=== PATIENT | male | born 1955 | race Caucasian/White ===

== ENCOUNTER 2016-11-15 16:49 | Inpatient (IN) | payer MEDICARE, OTHER ==
--- NOTE | ~2016-11-15 | DS ---
Discharge Summary [address] [address] [place]. [address] NAME: SHANTELLE GOLDEN : 55 STATUS : DIS IN PAT#: [id number] AGE: 61 ADM/REG DATE : 11/15/16 MR#: [id number] REPORT SERV DATE: 11/25/16 DICTATED BY: MARSHALL CAM DATE: 11/24/16 REPORT STATUS : Draft TRANSCRIBED BY: MODJesus DATE: 11/24/16 ADMISSION DATE: 11/15/2016 DISCHARGE DATE: 11/24/2016 CONSULTATION: 1. Cardiology, Dr. Darnell Blanchard. 2. Gastroenterology, Dr. Espinoza. 3. Orthopedic surgeon, Dr. Sebastian Moreland. 4. Awning Assembler, Dr. Brent Christianson. PROCEDURES DURING THIS ADMISSION: 1. Colonoscopy. Impression:. a. Non-thrombosed external hemorrhoids found on perianal exam. b. A single solitary ulcer in the ascending colon, biopsied. c. Diverticulosis in the sigmoid colon. d. Internal hemorrhoids. e. Recommendations: Recent hematochezia is secondary to hemorrhoids. Recommend repeat colonoscopy in 10 years. 2. Upper GI endoscopy. Impression:. a. Grade 2 esophageal varices. b. Portal hypertension gastropathy. c. Normal examination of duodenum. d. Recommendation: Continue carvedilol. Repeat EGD in six months. DISCHARGE DIAGNOSES: 1. Hepatic encephalopathy. 2. Bacteremia. 3. Lower GI bleed secondary to internal hemorrhoids. 4. Epidural hematoma. 5. Acute kidney injury. 6. Hypertension. 7. Coronary artery disease, status post CABG. 8. End-stage liver disease. 9. Liver cirrhosis. 10.History of hepatitis C infection. 11.Acute blood loss anemia requiring blood transfusion. DISCHARGE CONDITION: Stable. HISTORY OF PRESENT ILLNESS: For detailed HPI, please make reference to Dr. Cam's dictation on 11/16/2016. For hospital course between 11/16/2016 to 11/23/2016, please make reference to the interim discharge summary by Dr. Wesley Wilson. HOSPITAL COURSE: In summary, this is a 61-year-old gentleman with medical history significant for end-stage liver disease, history of hepatitis C, alcohol abuse, coronary artery disease, status post CABG in 2011, who presented with worsening confusion concerning Discharge Summary [facility] [address] [place]. [address] NAME: SHANTELLE GOLDEN : 55 STATUS : DIS IN PAT#: [id number] AGE: 61 ADM/REG DATE : 11/15/16 MR#: [id number] REPORT SERV DATE: 11/25/16 DICTATED BY: MARSHALL CAM DATE: 11/24/16 REPORT STATUS : Draft TRANSCRIBED BY: SARAH BETH DATE: 11/24/16 for hepatic encephalopathy. The patient was admitted to the Hospitalist Service. 1. Hepatic encephalopathy. The patient's ammonia was elevated. The patient was started on lactulose and rifaximin. The patient's confusion progressively improved during the course of this admission. 2. Bacteremia. The patient was also noted to have two blood cultures that were positive for staph agalactiae. The patient was placed on broad-spectrum antibiotics with vancomycin and ceftriaxone. Based on the sensitivity, this was gradually de-escalated. At the time of discharge, the patient was switched to p.o. levofloxacin based on sensitivity. Echocardiogram shows no evidence of vegetations. The patient has remained afebrile prior to discharge. Also, the patient's WBC gradually trended down nicely. 3. Acute blood loss anemia. The patient reported some episodes of chest pain. Given the patient's extensive cardiac history, it was noted that the patient was started on IV heparin; however, the patient's anemia continued to trip down. He continued to have persistent hematochezia, hence heparin was discontinued. Gastroenterology was consulted, who performed an EGD and a colonoscopy during the course of this admission. Report of the EGD and colonoscopy are as noted above. Source of hematochezia was noted to be related to hemorrhoids. The patient receive blood transfusion as well as platelet transfusion for thrombocytopenia. The patient's hemoglobin was noted to become stable prior to discharge. The patient's hemoglobin was 8.5. Also, of note, the patient complained of back pain, had an MRI of the thoracic and lumbar spine that shows T6 fracture with a large hematoma concerning for a retroperitoneal bleed. Orthopedic surgeon was consulted. Orthopedics recommend nonsurgical intervention given the patient's overall prognosis. It was recommended to continue to monitor patient's H and H. Prior to discharge, the patient's H and H remained stable at 8.5, and was advised to follow up with primary care physician as an outpatient. 4. Physical deconditioning. Prior to discharge, physical therapy evaluated the patient. Recommended the patient to undergo acute rehab; however, the patient declined acute rehab despite extensive counseling. We made an extensive attempt to get help for the patient for alcohol cessation program, but the patient has declined help. We also had a family meeting to plan for a safe discharge. The patient's ex-, who has the power of city attorney, was at the bedside. Prior to discharge, the patient's ex- reports that she will be able to provide care for the patient at home and will also ensure the patient's continued followup with primary care physician, with Cardiology, and orthopedic surgeon as an outpatient. At the time of discharge, the patient has remained stable. All questions were answered. All questions and concerns of the patient and ex- were addressed. The patient's mental status was alert and oriented x3 and had full competence into decision making at the time of discharge. DISCHARGE MEDICATION: 1. Rifaximin 550 mg p.o. b.i.d. 2. Lactulose 20 mg/30 mL 50 mg b.i.d. 3. Spironolactone 25 mg p.o. b.i.d. 4. Lasix 40 mg p.o. b.i.d. 5. Coreg 6.25 mg p.o. b.i.d. 6. Protonix 40 mg p.o. daily. 7. Levofloxacin 750 mg p.o. daily. Discharge Summary [address] [address] NAME: SHANTELLE GOLDEN : 55 STATUS : DIS IN PAT#: [id number] AGE: 61 ADM/REG DATE : 11/15/16 MR#: [id number] REPORT SERV DATE: 11/25/16 DICTATED BY: MARSHALL CAM DATE: 11/24/16 REPORT STATUS : Draft TRANSCRIBED BY: SARAH BETH DATE: 11/24/16 FOLLOW UP: To follow up with primary care physician within one to two weeks of discharge. To follow up with orthopedic surgeon within one to two weeks of discharge. To also follow up with his primary tinning equipment tender as an outpatient. The patient's hospital ward clerk and GI specialist is Dr. Molina. The patient to continue followup with him within two to three weeks of discharge. DISCHARGE ACTIVITIES: As tolerated. DISCHARGE DISPOSITION: Discharged home per the patient's wishes. Greater than 35 minutes was used to prepare this patient's discharge, reconcile medication, and advise the patient on discharge plans and followup. IOO/MODL Marshall Cam MD / [id number] CC: MD Hussain Palacios M.D.
--- NOTE | ~2016-11-15 | CN ---
Consultation Report [facility] [address] [place]. [address] NAME: SHANTELLE GOLDEN : 55 STATUS : ADM IN PAT#: [id number] AGE: 61 ADM/REG DATE : 11/15/16 MR#: [id number] REPORT SERV DATE: 11/24/16 DICTATED BY: SEBASTIAN BROWNING DATE: 11/24/16 REPORT STATUS : Draft TRANSCRIBED BY: MODL DATE: 11/24/16 CONSULT DATE OF CONSULTATION: CHIEF COMPLAINT: Upper back pain. HISTORY OF PRESENT ILLNESS: This is a 61-year-old male, who was admitted to the hospital for confusion and had GI bleed. Has end-stage liver cirrhosis, hepatitis C, alcohol abuse, etc. The patient has some coagulopathy and had a GI bleed. He has been able to resolve many of the medical issues. He has been placed on a DNR status listed on the chart. The patient has abnormal bleeding parameters per the labs. He was complaining of some back pain and has been walking with a walker in the hallway. He has had pain in the back, some pains in the legs, no weakness in the legs, has not had any alteration in bowel or bladder function and overall has been using a walker for at least the last 3 weeks. The patient was found on a chest x-ray to have a possible T6 compression fracture. MRI was obtained yesterday, the MRI showed a T6 fracture, there is minimal retropulsion but no impingement. There was a secondary finding of a small right-sided epidural hematoma causing some indentation of the thecal sac but it was nondisplacing or causing compression on the cord itself. There were some similar findings at T12. There was findings that extended down into the lumbar spine, and because of the abnormal hematoma in the lumbar spine, a separate MRI of the lumbar spine was obtained. The MRI of the lumbar spine does show much greater epidural hematoma, significant thecal sac compromise, and some rather high-grade stenosis. Despite the imaging findings the patient does not have subjective complaints of neurologic deficits such as change in bowel or bladder function, weakness in lower extremities, or major numbness. The chart has been reviewed in its entirety. Please see that for details on the history and physical regarding past medical history, surgical history, current medications, allergies, social history, and family history. PHYSICAL EXAMINATION: GENERAL: On exam, he was alert and cooperative, followed directions. He was turning in bed appropriately. He was able to follow all directions. MUSCULOSKELETAL: He had some pain with percussion over the midthoracic spine and the spinous processes. No significant spasms. He had no significant pain to palpation or percussion over the lumbar spine. NEUROLOGIC: He had a negative straight leg raising, passive and active. Interestingly, his motor strength of the iliopsoas, adductor, abductors, quadriceps, hamstrings, tibialis anterior, and gastroc soleus were all 5/5. Both patellar and Achilles reflexes were absent, but the toes were downgoing. There was no ankle clonus, and there was no evidence of myelopathy by exam. There was no dermatomal sensory deficit in either lower extremity that I could map out. ORTHOPEDIC: He did not have any joint deformities. He had no pain with moving the hips, knees, or ankles. Consultation Report [facility] [facility] [id number] [facility] [place]. [address] NAME: SHANTELLE GOLDEN : 55 STATUS : ADM IN [facility]#: [id number] AGE: 61 ADM/REG DATE : 11/15/16 MR#: [id number] REPORT SERV DATE: 11/24/16 DICTATED BY: SEBASTIAN BROWNING DATE: 11/24/16 REPORT STATUS : Draft TRANSCRIBED BY: SARAH BETH DATE: 11/24/16 IMAGING: MRIs of the thoracic and lumbar spine have been reviewed with the findings as noted above. ASSESSMENT: 1. T6 subacute compression fracture that is stable, no kyphoplasty or surgery needed. 2. Small epidural hematoma at C6 and T12, stable, no cord compression and no surgery needed. 3. High-grade lumbar epidural hematoma, but no neurologic deficit in the lower extremities, and with his current coagulopathy, liver failure, and DNR status, I do not believe he is a surgical candidate. We are treating the patient rather than treating just images, and with an intact neurologic status, I do not see the need for a multilevel laminectomy and evacuation of hematoma. Please note, I have gone over with the patient the findings of the MRI. I have explained to him if his leg start to feel weak in any way or if he has any alteration in bowel or bladder function, he should return to the ER immediately. At this time, the hospitalist can disposition as desired. Over the next 2 to 3 months, I think the hematoma should slowly resolve. KOKI/IMTIAZL Sebastian Browning D.O. / [id number] CC: MD Hussain Macias M.D.
--- NOTE | ~2016-11-15 | EGD ---
EGD REPORT [facility] [address] [place] [address] NAME: DYLAN ANTHONY : 55 STATUS : ADM IN PAT#: [id number] AGE: 61 ADM/REG DATE : 11/15/16 MR#: [id number] REPORT SERV DATE: 11/20/16 DICTATED BY: JEET STEVENS DATE: 11/20/16 REPORT STATUS : Draft [facility]ANSCRIBED BY: [facility] DATE: 11/20/16 [facility] Center Patient Name: Dylan Anthony Date of : 1955 Attending MD: JEET STEVENS MD Procedure Date No Time: 11/20/2016 Procedure: Colonoscopy Indications: Hematochezia Referring MD: NADIA SAL Medicines: Propofol per Anesthesia Complications: No immediate complications. Procedure: Pre-Anesthesia Assessment: - ASA Grade Assessment: IV - A patient with severe systemic disease that is a constant threat to life. After I obtained informed consent, the scope was passed under direct vision. Throughout the procedure, the patient's blood pressure, pulse, and oxygen saturations were monitored continuously. The PCF [id number] was introduced through the anus and advanced to the cecum, identified by appendiceal orifice and ileocecal valve. The colonoscopy was performed without difficulty. The patient tolerated the procedure well. The quality of the bowel preparation was good. Findings: The perianal exam was abnormal. Findings include non-thrombosed external hemorrhoids. A single (solitary) six mm ulcer was found in the ascending colon. No bleeding was present. Biopsies were taken with a cold forceps for histology. Multiple small-mouthed diverticula were found in the sigmoid colon. Internal hemorrhoids were found during retroflexion and were Grade II (internal hemorrhoids that prolapse but reduce spontaneously). Impression: - Non-thrombosed external hemorrhoids found on perianal exam. - A single (solitary) ulcer in the ascending colon. Biopsied. - Diverticulosis in the sigmoid colon. - Internal hemorrhoids. Recommendation: - Await pathology results. - Recent hematochezia is secondary to hemorrhoids. Anusol HC as needed. - Patient has a contact number available for EGD REPORT [address] [address] NAME: DYLAN ANTHONY : 55 STATUS : ADM IN PAT#: [id number] AGE: 61 ADM/REG DATE : 11/15/16 MR#: [id number] REPORT SERV DATE: 11/20/16 DICTATED BY: JEET STEVENS DATE: 11/20/16 REPORT STATUS : Draft TRANSCRIBED BY: [employer] DATE: 11/20/16 emergencies. The signs and symptoms of potential delayed complications were discussed with the patient. Return to normal activities tomorrow. Written discharge instructions were provided to the patient. - Regular diet. - Repeat colonoscopy in 10 years for screening purposes. Procedure Code(s): --- Professional --- 15678, Colonoscopy, flexible, proximal to splenic flexure; with biopsy, single or multiple Diagnosis Code(s): --- Professional --- K64.1, Second degree hemorrhoids K64.4, Residual hemorrhoidal skin tags K57.30, Diverticulosis of large intestine without perforation or abscess without bleeding K63.3, Ulcer of intestine K92.1, [place]ena CPT copyright 2013 [employer]. All rights reserved. The codes documented in this report are preliminary and upon open hearth furnace operator review may be revised to meet current compliance requirements. JEET STEVENS MD 11/20/2016 7:54 AM This report has been signed electronically. Number of Addenda: 0 Note Initiated On: 11/20/2016 7:10 AM Scope Withdrawal Time 0 hours 9 minutes 28 seconds [address] [place] [address]
--- NOTE | ~2016-11-15 | CN ---
Consultation Report [facility] [address] [place]. [address] NAME: DYLAN ANTHONY : 55 STATUS : ADM IN PAT#: [id number] AGE: 61 ADM/REG DATE : 11/15/16 MR#: [id number] REPORT SERV DATE: 11/17/16 DICTATED BY: SHAUN ODEN DATE: 11/17/16 REPORT STATUS : Draft TRANSCRIBED BY: MODL DATE: 11/17/16 GI CONSULTATION DATE OF CONSULTATION: 11/17/2016 REASON FOR CONSULTATION: Evaluation and management of bright red blood per rectum. HISTORY OF PRESENT ILLNESS: Mr. Dylan Anthony is a 61-year-old male patient, who is known to Dr. Virgen Kaplan as well as Dr. Mazin Molina for hepatitis C with end-stage liver cirrhosis. The patient presented to [facility] with a chief complaint, on 11/15/2016, of confusion as well as nausea, vomiting, and diarrhea. He states that now he has been having some rectal bleeding for several months. He essentially ignored it thinking that it would just go away but it has progressively worsened. He was admitted on 11/15/2016 with a hemoglobin of 11.6, that has subsequently dropped to 7.9 and is anticipating a blood transfusion at this moment. He has been started on Protonix drip as well as an octreotide drip. He has had a colonoscopy in the past by Dr. Kaplan, which showed colon polyps, diverticulosis of the sigmoid colon, and internal hemorrhoids. He has never had an EGD. He has a history of hepatitis C, which has been cleared. His last hep C RNA was negative. He does have a history of alcoholism and it was reported that he was drinking quarts heavily five days prior to symptom onset. He states that he did have some abdominal pain with the diarrhea. He has had some vomiting but denies any coffee-ground or angel blood from what the nursing staff has said his stools began with dark maroon color but now have progressively turned into bright red blood. He denies any rectal discomfort. He was encephalopathic when he came in and now has resolved. I have discussed with the patient. We will plan for EGD and colonoscopy to be done tomorrow after adequate bowel prep. He is agreeable to proceed. He had a question of a STEMI on admission and was given some heparin, but Cardiology has seen the patient and ruled out STEMI. PAST MEDICAL HISTORY: Positive for alcohol abuse; hepatitis C, cleared on last hep C RNA; liver cirrhosis; coronary artery disease, status post CABG; hyperlipidemia; hypertension; history of hepatic encephalopathy. He has coronary artery disease with a history of CABG. FAMILY HISTORY: Negative from a GI standpoint. SOCIAL HISTORY: . Positive for daily alcohol. Past history of tobacco. Denies illicits. ALLERGIES: TO STATINS AND AMIODARONE. HOME MEDICATIONS: ProAir HFA, BuSpar, folic acid, Zoloft, thiamin, Coreg, Lasix, and spironolactone. REVIEW OF SYSTEMS: A 10-point review of systems obtained. Pertinent positives addressed in the history of Consultation Report [address] [address] NAME: DYLAN ANTHONY : 55 STATUS : ADM IN [facility]#: [id number] AGE: 61 ADM/REG DATE : 11/15/16 MR#: [id number] REPORT SERV DATE: 11/17/16 DICTATED BY: SHAUN ODEN DATE: 11/17/16 REPORT STATUS : Draft TRANSCRIBED BY: SARAH BETH DATE: 11/17/16 present illness. PHYSICAL EXAMINATION: VITAL SIGNS: Temperature is 97.1, pulse of 87, and respirations of 16, blood pressure 98/49. NEUROLOGIC: Reveals an alert, chronically ill-appearing, male, resting in bed. He is oriented x3, but he is very slow to answer. GENERAL: He is cooperative. He is in some mild distress secondary to abdominal discomfort. He is awake, alert, and oriented. He has some mild asterixis noted. HEAD, EARS, EYES, NOSE, AND THROAT: Anicteric. Pupils are equal, round, reactive to light and accommodation. Normocephalic and atraumatic. NECK: No JVD. No palpable nodes. LUNGS: Diminished with normal respiratory effort exhibited. CARDIOVASCULAR SYSTEM: Regular rate and rhythm. ABDOMEN: Soft but obese with mild ascites noted. He has active bowel sounds. No pain elicited on exam. EXTREMITIES: Positive for edema. PERTINENT LABORATORY DATA: Sodium is 134, potassium 3.7, BUN is 43, creatinine is 1.06. White count 11.2, hemoglobin is 7.9, hematocrit 22.2, platelet count is 66. INR of 1.6. CPK is 280, troponin is 0.17, TSH is 2.55. CT on admission without contrast shows cirrhosis and splenomegaly. He also had a brain CT without contrast, which was negative. ASSESSMENT: 1. Bright red blood per rectum with notable dark to maroon. This could be upper versus lower GI bleeding. Differential diagnosis includes esophageal varices, portal hypertensive gastropathy, peptic ulcer disease versus diverticular bleed, AVM. 2. Hepatic encephalopathy, improved. 3. History of hepatitis C. End-stage renal disease, liver disease. 4. Acute blood loss anemia. 5. Alcohol abuse. 6. Bacteremia/sepsis. PLAN: 1. Clear liquid diet. N.p.o. After midnight. 2. Bowel prep today. 3. EGD, colonoscopy in the morning. 4. The patient is already on a PPI and octreotide drip. 5. Follow H and H, transfuse if needed. DG/SARAH BETH [place] Consultation Report [address] [place]. [address] NAME: DYLAN ANTHONY : 55 STATUS : ADM IN [facility]#: [id number] AGE: 61 ADM/REG DATE : 11/15/16 MR#: [id number] REPORT SERV DATE: 11/17/16 DICTATED BY: SHAUN ODEN DATE: 11/17/16 REPORT STATUS : Draft TRANSCRIBED BY: SARAH BETH DATE: 11/17/16 CHAO Espinoza / [id number] CC: MD Hussain Macias M.D.
--- NOTE | ~2016-11-15 | EGD ---
EGD REPORT [facility] [address] [place] [address] NAME: DYLAN ANTHONY : 55 STATUS : ADM IN PAT#: [id number] AGE: 61 ADM/REG DATE : 11/15/16 MR#: [id number] REPORT SERV DATE: 11/20/16 DICTATED BY: JEET STEVENS DATE: 11/20/16 REPORT STATUS : Draft TRANSCRIBED BY: [facility] DATE: 11/20/16 [facility] Patient Name: Dylan Anthony Date of : 1955 Attending MD: JEET STEVENS MD Procedure Date No Time: 11/20/2016 Procedure: Upper GI endoscopy Indications: Cirrhosis rule out esophageal varices Referring MD: NADIA SAL Medicines: Propofol per Anesthesia Complications: No immediate complications. Procedure: Pre-Anesthesia Assessment: - ASA Grade Assessment: IV - A patient with severe systemic disease that is a constant threat to life. After obtaining informed consent, the endoscope was passed under direct vision. Throughout the procedure, the patient's blood pressure, pulse, and oxygen saturations were monitored continuously. The GIF [id number] was introduced through the mouth, and advanced to the second part of duodenum. The upper GI endoscopy was accomplished without difficulty. The patient tolerated the procedure well. Findings: Grade II varices were found in the lower third of the esophagus. Moderate portal hypertensive gastropathy was found in the cardia, in the gastric fundus and in the gastric body. The examined duodenum was normal. Impression: - Grade II esophageal varices. - Portal hypertensive gastropathy. - Normal examined duodenum. Recommendation: - Continue carvedilol. - Repeat EGD in 6 months. Procedure Code(s): --- Professional --- 55221, Esophagogastroduodenoscopy, flexible, transoral; diagnostic, including collection of specimen(s) by brushing or washing, when performed (separate procedure) Diagnosis Code(s): --- Professional --- I85.10, Secondary esophageal varices without bleeding K76.6, Portal hypertension K31.89, Other diseases of stomach and duodenum EGD REPORT [address] [facility] [place] [address] NAME: DYLAN ANTHONY : 55 STATUS : ADM IN PAT#: [id number] AGE: 61 ADM/REG DATE : 11/15/16 MR#: [id number] REPORT SERV DATE: 11/20/16 DICTATED BY: JEET STEVENS. DATE: 11/20/16 REPORT STATUS : Draft TRANSCRIBED BY: [employer] DATE: 11/20/16 K74.60, Unspecified cirrhosis of liver CPT copyright 2013 [employer]. All rights reserved. The codes documented in this report are preliminary and upon braille coder review may be revised to meet current compliance requirements. JEET STEVENS MD 11/20/2016 7:51 AM This report has been signed electronically. Number of Addenda: 0 Note Initiated On: 11/20/2016 7:12 AM Scope Withdrawal Time 0 hours 0 minutes [address] [place] [address]
--- NOTE | ~2016-11-15 | EGD ---
EGD REPORT [facility] [address] [place] [address] NAME: DYLAN ANTHONY : 55 STATUS : DIS IN PAT#: [id number] AGE: 61 ADM/REG DATE : 11/15/16 MR#: [id number] REPORT SERV DATE: 12/21/16 DICTATED BY: JEET STEVENS DATE: 12/21/16 REPORT STATUS : Draft TRANSCRIBED BY: [facility] DATE: 12/21/16 [facility] Patient Name: Dylan Anthony Date of : 1955 Attending MD: JEET STEVENS MD Procedure Date No Time: 11/20/2016 Procedure: Colonoscopy Indications: Hematochezia Referring MD: NADIA SAL Medicines: Propofol per Anesthesia Complications: No immediate complications. Procedure: Pre-Anesthesia Assessment: - ASA Grade Assessment: IV - A patient with severe systemic disease that is a constant threat to life. After I obtained informed consent, the scope was passed under direct vision. Throughout the procedure, the patient's blood pressure, pulse, and oxygen saturations were monitored continuously. The PCF [id number] was introduced through the anus and advanced to the cecum, identified by appendiceal orifice and ileocecal valve. The colonoscopy was performed without difficulty. The patient tolerated the procedure well. The quality of the bowel preparation was good. Findings: The perianal exam was abnormal. Findings include non-thrombosed external hemorrhoids. A single (solitary) six mm ulcer was found in the ascending colon. No bleeding was present. Biopsies were taken with a cold forceps for histology. Multiple small-mouthed diverticula were found in the sigmoid colon. Internal hemorrhoids were found during retroflexion and were Grade II (internal hemorrhoids that prolapse but reduce spontaneously). Impression: - Non-thrombosed external hemorrhoids found on perianal exam. - A single (solitary) ulcer in the ascending colon. Biopsied. - Diverticulosis in the sigmoid colon. - Internal hemorrhoids. Recommendation: - Await pathology results. - Recent hematochezia is secondary to hemorrhoids. Anusol HC as needed. - Patient has a contact number available for EGD REPORT [address] [address] NAME: DYLAN ANTHONY : 55 STATUS : DIS IN PAT#: [id number] AGE: 61 ADM/REG DATE : 11/15/16 MR#: [id number] REPORT SERV DATE: 12/21/16 DICTATED BY: JEET STEVENS DATE: 12/21/16 REPORT STATUS : Draft TRANSCRIBED BY: [facility] DATE: 12/21/16 emergencies. The signs and symptoms of potential delayed complications were discussed with the patient. Return to normal activities tomorrow. Written discharge instructions were provided to the patient. - Regular diet. - Repeat colonoscopy in 10 years for screening purposes. Procedure Code(s): --- Professional --- 70989, Colonoscopy, flexible, proximal to splenic flexure; with biopsy, single or multiple Diagnosis Code(s): --- Professional --- K64.1, Second degree hemorrhoids K64.4, Residual hemorrhoidal skin tags K57.30, Diverticulosis of large intestine without perforation or abscess without bleeding K63.3, Ulcer of intestine K92.1, Melena CPT copyright 2013 [employer]. All rights reserved. The codes documented in this report are preliminary and upon instructional technology director review may be revised to meet current compliance requirements. JEET STEVENS MD 11/20/2016 7:54 AM This report has been signed electronically. Number of Addenda: 0 Note Initiated On: 11/20/2016 7:10 AM Scope Withdrawal Time 0 hours 9 minutes 28 seconds [address] [place] [address] [address]
--- NOTE | ~2016-11-15 | HP ---
History And Physical [id number] [place]. [address] NAME: SHANTELLE GOLDEN : 55 STATUS : ADM IN [facility]#: [id number] AGE: 61 ADM/REG DATE : 11/15/16 MR#: [id number] REPORT SERV DATE: 11/16/16 DICTATED BY: MARSHALL CAM DATE: 11/16/16 REPORT STATUS : Draft TRANSCRIBED BY: SARAH BETH DATE: 11/16/16 DATE OF ADMISSION: 11/15/2016 CHIEF COMPLAINT: Confusion. HISTORY OF PRESENT ILLNESS: This is a 61-year-old gentleman with medical history significant for end-stage liver cirrhosis, history of hepatitis C, alcohol abuse, coronary artery disease status post CABG, who presented to the hospital with complaints of confusion. The patient was pleasantly confused during the time of this interview. HPI was provided by his ex-, who was at bedside at the time of this interview. It was noted that the patient has been indoor bound in the last five days. The patient reported that he continues to drink heavily until about five days ago when he developed significant diarrhea, nausea, and vomiting. Was unable to afford to leave the house to get more drinks. The patient reports since five days ago, he has not had any alcohol. However, he has suffered from significant abdominal discomfort with some diarrhea with some episodes of vomiting. The patient reports that he has also been having subjective chills, but denies any fever. He has had some cough that was productive of yellowish sputum with some shortness of breath, but denies any history of contact with patients with acute febrile illness. Denies any recent travel. Denies any recent surgery. The patient also reported associated history of chest pain that is retrosternal, but reports that this has been going on for several weeks. No change in the characteristics and intensity of the pain per the patient's report. The chest pain is not related to exertion. Denies any pleurisy. Denies any palpitation, presyncope, or syncopal episodes. Denies any diaphoresis. PAST MEDICAL HISTORY: 1. Alcoholism. 2. Hepatitis C. 3. Liver cirrhosis. 4. Coronary artery disease, status post CABG. 5. Hyperlipidemia. 6. Hypertension. 7. History of memory impairment. PAST SURGICAL HISTORY: History of CABG. FAMILY HISTORY: Significant for coronary artery disease, alcoholism. SOCIAL HISTORY: The patient is currently . Continues to drink alcohol heavily. Reports that he has quit smoking. Denies any illicit drug use. HOME MEDICATIONS: 1. Folic acid 1 mg p.o. daily. 2. Thiamine 100 mg p.o. daily. 3. BuSpar 10 mg p.o. b.i.d. 4. Zoloft 150 mg p.o. daily. 5. Coreg, dose unspecified. History And Physical [address] [address] NAME: SHANTELLE GOLDEN : 55 STATUS : ADM IN PAT#: [id number] AGE: 61 ADM/REG DATE : 11/15/16 MR#: [id number] REPORT SERV DATE: 11/16/16 DICTATED BY: MARSHALL CAM DATE: 11/16/16 REPORT STATUS : Draft TRANSCRIBED BY: SARAH BETH DATE: 11/16/16 6. Lasix, dose unspecified. 7. Spironolactone, dose unspecified. 8. Albuterol MDI, dose unspecified. ALLERGY HISTORY: Intolerance to statin, HMG-CoA reductase inhibitor, and amiodarone. PHYSICAL EXAMINATION: VITAL SIGNS: Blood pressure 125/71, temperature 98, pulse rate 100 beats per minute, saturating 97% on room air. GENERAL: Lying in bed, pleasantly confused. Oriented x2. HEENT: Extraocular muscles intact. Pupils equal, round, and reactive. Anicteric. Not pale. NECK: No JVD. CHEST: No area of tenderness. LUNGS: Mild expiratory wheezes. No crackles. No rhonchi. CARDIOVASCULAR: Regular rate and rhythm. S1, S2. No rubs, no gallops, no murmurs. ABDOMEN: Distended. No palpably enlarged organomegaly. LOWER EXTREMITIES: No pedal edema. LABORATORY DATA: Sodium 133, potassium 3.5, chloride 101, bicarb 21, BUN 35, creatinine 1.35, GFR 56, glucose 114, calcium 8.4, total protein 6.1, albumin 2.5, globulin 4.1, total bilirubin 2.5, alkaline phosphatase 95, ALT 24, AST 58. WBC 16.1, hemoglobin 11.6, hematocrit 32.8, platelets 66, ammonia 57. BNP 182. Urinalysis negative. Lactate 2.2, procalcitonin 27.1. Chest x-ray, lung volume with minimal basilar atelectasis. In summary, this is a 61-year-old male with medical history of alcohol abuse, end- stage liver cirrhosis, who presented to the hospital with episode of confusion preceded by diarrhea, nausea, and vomiting, who was noted to be confused in the ER consistent with hepatic encephalopathy. ASSESSMENT: 1. Hepatic encephalopathy. 2. Sepsis. 3. Coronary artery disease, status post CABG. 4. Liver cirrhosis. 5. Thrombocytopenia. PLAN: 1. Hepatic encephalopathy. Given elevated ammonia with confusion with history of end- stage liver cirrhosis, we will start the patient on lactulose and rifaximin with IV Lasix and spironolactone. 2. Sepsis. The patient's WBC is significantly elevated. Given the patient's abdominal distention, I am very much concerned about possible SBP in this patient. We will start the patient on cefepime. 3. Possibly had vancomycin for broader coverage given reported cough productive of sputum History And Physical [address] [address] NAME: SHANTELLE GOLDEN : 55 STATUS : ADM IN [facility]#: [id number] AGE: 61 ADM/REG DATE : 11/15/16 MR#: [id number] REPORT SERV DATE: 11/16/16 DICTATED BY: MARSHALL CAM DATE: 11/16/16 REPORT STATUS : Draft TRANSCRIBED BY: MODJesus DATE: 11/16/16 pending procalcitonin level as well as given elevated procalcitonin level. 4. Coronary artery disease with past history of CABG. The patient reports stable chest pain which he reports that it has been going on for several years. We will check the patient's troponin. We will repeat serial EKGs and follow as needed. 5. Alcoholism. The patient continued to have extensive history of alcohol abuse. Last drink was five days ago. No evidence of acute alcohol withdrawal at this time. We will continue to monitor the patient for possible alcohol withdrawal. 6. Code status, DNR per the patient's wish according to the ex-, who has the power of patent prosecution attorney. ADMISSION DISPOSITION: Cardiac tele. ADMISSION STATUS: Inpatient. DVT PROPHYLAXIS: Contraindicated due to thrombocytopenia. We will continue to monitor. IOO/MODL Marshall Cam MD / [id number] CC: Joanie Joseph M.D.
--- NOTE | ~2016-11-15 | IDS ---
Interim Discharge Summary [facility] [address] [place]. [address] NAME: SHANTELLE GOLDEN : 55 STATUS : ADM IN PAT#: [id number] AGE: 61 ADM/REG DATE : 11/15/16 MR#: [id number] REPORT SERV DATE: 11/23/16 DICTATED BY: BEENA SÁNCHEZ DATE: 11/23/16 REPORT STATUS : Draft TRANSCRIBED BY: MODL DATE: 11/23/16 ADMISSION DATE: 11/15/2016 DISCHARGE DATE: CURRENT DIAGNOSES: 1. Bacteremia, present on arrival. 2. End-stage liver disease, present on arrival. 3. Grade 2 varices and hemorrhoids. 4. Acute blood loss anemia, requiring blood transfusions. 5. Bicytopenia. 6. Acute kidney injury, present on arrival. 7. T6 fracture. 8. Hypertension. 9. Elevated INR. 10.Chest pain. CONSULTATIONS: Dr. Blanchard with Cardiology, Dr. Mejia with GI, Ortho Spine pending. Dr. Mazin Molina also notified, the patient's liver specialist. HOSPITAL COURSE: The patient is a 61-year-old male with a long history of alcohol use, tobacco use, and subsequent end-stage liver disease who presents after having progressive weakness as he was too weak to even get anymore alcohol. He did not have any withdrawal type symptoms at home but was profoundly weak. He had been having episodes on and off over the last month with what he believed to be hemorrhoidal pain or hemorrhoidal bleed as he got multiple bowel movements. The patient when admitted was initially treated for end-stage liver disease and additional complications but also underwent chest pain discomfort and was transferred to cardiac tele floor and placed on heparin drip, and the patient was reviewed by Cardiology, and reproducible chest pain was noted with history of fall. Imaging was performed, however, the patient did have recurrent episodes of bloody bowel movement and the patient did require blood transfusions as well as platelet transfusion due to thrombocytopenia. The patient underwent bowel prep and endoscopy, noted to have varices grade 2 hemorrhoids, deescalated from PPI, continued on Coreg for end-stage liver disease. The patient was also continued on rifampin, added lactulose due to elevated ammonia. Mental status began to improve as the patient presumptively had hepatic encephalopathy at admission. He has also been covered with Rocephin and Flagyl currently. The patient was initially on cefepime empiric antibiotic, was changed to Ancef based on sensitivities, had increase in CBC which also suggested possible poor GI coverage, discussed with Dr. Mejia, changed back to cefepime or Rocephin. Rocephin has been restarted, to monitor for volume load. Additional dose of Flagyl has been started and to monitor clinical response. The patient's blood loss anemia is being monitored and fairly improving. We will additionally have Ortho evaluation for T6 fractures as the patient still continues to have significant amount of chest discomfort that is reproducible with chest wall palpation and does have elevated INR which is likely secondary to liver dysfunction but we will need to continue close monitoring for this. The family has been updated, still has guarded prognosis. The patient is DNR. Interim Discharge Summary [address] [address] NAME: SHANTELLE GOLDEN : 55 STATUS : ADM IN [facility]#: [id number] AGE: 61 ADM/REG DATE : 11/15/16 MR#: [id number] REPORT SERV DATE: 11/23/16 DICTATED BY: BEENA SÁNCHEZ DATE: 11/23/16 REPORT STATUS : Draft TRANSCRIBED BY: MODJesus DATE: 11/23/16 DDN/SARAH BETH Beena Sánchez MD / [id number] CC: MD Hussain Macias M.D.
--- NOTE | ~2016-11-15 | CN ---
Consultation Report [facility] [address] [place]. [address] NAME: SHANTELLE ANTHONY : 55 STATUS : ADM IN [facility]#: [id number] AGE: 61 ADM/REG DATE : 11/15/16 MR#: [id number] REPORT SERV DATE: 11/16/16 DICTATED BY: ALICJA BRYANT DATE: 11/16/16 REPORT STATUS : Draft TRANSCRIBED BY: MODJesus DATE: 11/16/16 DATE OF CONSULTATION: 11/16/2016 HISTORY OF PRESENT ILLNESS: Mr. Anthony is a 61-year-old white male, who lives alone. He does have an ex- who checks in on him every now and then. He does suffer with end-stage liver disease. He has cirrhosis and history of hepatitis C. He is a heavy drinker, four quarts of beer on a daily basis. Finally, ran out of alcohol about five days ago. Over that time, he has had nausea, vomiting, and diarrhea. He does endorse chest discomfort associated with shortness of breath. The ex- tells me he had pneumonia back in June. He is a DNR code status with platelet count of 66,000. PAST MEDICAL HISTORY: COPD, liver cirrhosis with hep C as mentioned above, alcohol abuse, history of coronary artery disease with bypass surgery in 2011. He has dyslipidemia, hypertension, memory loss. He is a former smoker and he has a family history of heart disease. Intolerance to amiodarone and statin therapy. MEDICATIONS: At home include albuterol, buspirone, folate, sertraline, thiamine, Coreg, Lasix, and spironolactone. FAMILY HISTORY: As listed above. SOCIAL HISTORY: As listed above. PAST SURGICAL HISTORY: As listed above. REVIEW OF SYSTEMS: Otherwise all negative. PHYSICAL EXAMINATION: VITAL SIGNS: Blood pressure 117/63, heart rate in the 90s. GENERAL: The patient is a well-developed, well-nourished white male. He is alert and oriented x3 in no distress. HEENT: Pupils equal, round, and reactive to light and accommodation. Extraocular muscles intact. NECK: Supple. Trachea midline. No carotid bruits. CHEST: Clear. HEART: PMI midclavicular line. Regular rate and rhythm. He has a 2/6 systolic murmur at right sternal border with clear and distinct S2. ABDOMEN: Protuberant, soft. EXTREMITIES: No clubbing, cyanosis, or edema. NEUROLOGIC: Nonfocal. LABORATORY DATA: We have a 12-lead EKG that shows diffuse ST elevation consistent with Consultation Report [address] [place]. [address] NAME: SHANTELLE ANTHONY : 55 STATUS : ADM IN PAT#: [id number] AGE: 61 ADM/REG DATE : 11/15/16 MR#: [id number] REPORT SERV DATE: 11/16/16 DICTATED BY: ALICJA BRYANT DATE: 11/16/16 REPORT STATUS : Draft TRANSCRIBED BY: MODL DATE: 11/16/16 possible pericardial inflammation. We have a troponin of 0.36, which has trended down to 0.34. The patient has a white count of 16,000. He has a platelet count in the 60s. His BNP is 182. He has a CAT scan of the chest, abdomen, and pelvis, which are pending at this time. CLINICAL IMPRESSIONS: 1. Atypical chest pain, reproducible, positional and pleuritic. 2. EKG with questionable pericarditis. 3. Troponin of 0.35 trending down of 0.34. 4. Questionable pneumonia or chronic obstructive pulmonary disease exacerbation. 5. CAT scan of chest, abdomen, and pelvis is pending. 6. Positive nausea, vomiting, diarrhea, binge drinking with alcohol. 7. End-stage liver disease, cirrhosis, and hepatitis C. 8. Platelet count of 66,000. 9. The patient follows with Dr. Mazin Molina. 10.He is a DNR code status. 11.Remote history of coronary artery disease with bypass surgery [place] [address] Quincy Bejarano. PLAN: 1. Trans CIP use. 2. Followup CAT scan. 3. Check an echo. 4. Stop the heparin drip. 5. Therapeutic trial of nitroglycerin. 6. Consider nonsteroidals. We will follow along with you. AHF/MODL Alicja Bryant M.D. / [id number] CC: Joanie Joseph M.D.
--- NOTE | ~2016-11-15 | CN ---
Consultation Report [id number] [facility] [place]. [address] NAME: SHANTELLE ANTHONY : 55 STATUS : ADM IN [facility]#: [id number] AGE: 61 ADM/REG DATE : 11/15/16 MR#: [id number] REPORT SERV DATE: 11/19/16 DICTATED BY: BRENT BANDA III DATE: 11/18/16 REPORT STATUS : Draft TRANSCRIBED BY: MODJesus DATE: 11/18/16 CONSULTATION NOTE. DATE OF CONSULTATION: 11/18/2016 REASON FOR CONSULTATION: Thrombocytopenia. HISTORY OF PRESENT ILLNESS: Mr. Anthony is a 61-year-old man with severe liver cirrhosis, history of hepatitis C, and alcohol abuse, who was brought to the emergency department with confusion. He also was more lethargic for the past several days and had not had any alcohol during that time. He was admitted for further workup and thought to have an underlying infection responsible for his symptoms. He was started on broad-spectrum antibiotics and admitted for further care. During his hospitalization, his platelet count has dropped from around 60,000 down to 12,000 as of this morning, he was transfused platelets and had a good response to 81,000. Presently, Mr. Anthony remains mildly confused, although is able to answer some questions appropriately. PAST MEDICAL HISTORY: 1. Liver cirrhosis. 2. Alcohol abuse. 3. Hepatitis C. 4. Coronary artery disease status post CABG. 5. Hypertension. 6. Hyperlipidemia. 7. History of memory deficit. FAMILY HISTORY: Significant for coronary artery disease and alcohol abuse. SOCIAL HISTORY: He is currently . He does continue to drink alcohol regularly, but reportedly does not smoke. HOME MEDICATIONS: His home medications are per the home med list and were reviewed. His history was obtained from the chart as he is unable to give an accurate history. REVIEW OF SYSTEMS: A comprehensive review of systems was attempted to be obtained and is negative unless noted in the HPI, although his mild confusion does make the accuracy difficult. PHYSICAL EXAMINATION: VITAL SIGNS: Blood pressure is 89/52, temperature is 97.3, pulse is 74, and respiratory rate 18. GENERAL: This is a well-developed, overly nourished man in no distress. EYES: Pupils are round and reactive to light. Extraocular movements are intact. NECK: Supple with no masses or thyroid enlargement. There is no JVD. Consultation Report [id number] [place]. [address] NAME: SHANTELLE ANTHONY : 55 STATUS : ADM IN PAT#: [id number] AGE: 61 ADM/REG DATE : 11/15/16 MR#: [id number] REPORT SERV DATE: 11/19/16 DICTATED BY: BRENT BANDA III DATE: 11/18/16 REPORT STATUS : Draft TRANSCRIBED BY: MODL DATE: 11/18/16 CARDIOVASCULAR: Regular rate and rhythm with no audible murmurs. LUNGS: Clear to auscultation bilaterally with normal respiratory effort. ABDOMEN: Soft, mildly distended, and nontender with no noted hepatosplenomegaly. SKIN: Warm and dry with good skin turgor. PSYCH: He is alert. He is oriented to year, but not to place or person or time. LABORATORY DATA: His peripheral smear was personally reviewed. Red blood cells were normochromic normocytic with no fragments. White blood cells had toxic granulation. Platelets had decreased count, but normal morphology. His CBCs since admission in the past several years were reviewed. ASSESSMENT/PLAN: Thrombocytopenia. In reviewing his past blood counts he does appear to have a baseline thrombocytopenia with a platelet count normally running less than 100,000 dating back to 2011. I suspect that the current drops is secondary to either infection or/and underlying liver disease, although his antibiotics could also be contributing. I doubt he has primary immune thrombocytopenia secondary to the timing of his drop and the good response post transfusion. There is no evidence of TTP on his peripheral smear. We will monitor for now. BMA/SARAH BETH Brent Banda III, M.D. / [id number] CC: MD Hussain Macias M.D.
[2016-11-15 15:44] LABS: BASOPHILS 0.1 %; BASOPHILS ABSOLUTE 0.02 10/3/uL (0.0-0.16); EOSINOPHILS 0.1 %; EOSINOPHILS ABSOLUTE 0.01 10/3/uL (0.0-0.53); HEMATOCRIT 32.8 % (40.0-51.0); HEMOGLOBIN 11.6 g/dL (13.6-17.8); IMMATURE GRANULOCYTES 0.4 %; LYMPHOCYTES 3.7 %; LYMPHOCYTES ABSOLUTE 0.59 10/3/uL (0.67-4.30); MEAN CORPUS HGB CONC 35.4 g/dL (32.0-36.0); MEAN CORPUSCULAR HEMOGLOB 31.9 pg (26.0-34.0); MEAN PLATELET VOLUME 11.3 fL (9.2-13.0); MONOCYTES 11.2 %; MONOCYTES ABSOLUTE 1.81 10/3/uL (0.21-1.20); NEUTROPHILS 84.5 %; RBC DISTRIBUTION WIDTH 16.5 % (12.0-16.0); RED CELL COUNT 3.64 10/6/uL (4.7-6.1)
[2016-11-15 15:49] LABS: ER CBC TAT 0 Hrs 10 Mins; IMMATURE GRANULOCYTES ABSOLUTE 0.06 10/3/uL (0.0-0.11); MANUAL DIFF NO %; MEAN CORPUSCULAR VOLUME 90.1 fL (80-100); PLATELET COUNT 66 10/3/uL (150-400); WHITE BLOOD CELLS 16.1 10/3/uL (4.5-10.5)
[2016-11-15 15:58] LABS: INSTRUMENT SERIAL # 8087; pH 7.47 (7.37-7.43)
[2016-11-15 15:59] LABS: ALLENS TEST Pos; BE (BASE EXCESS) -4.2 MEQ/L (0 +/- 2.5); CARBOXYHEMOGLOBIN 1.3 % (0-3); HCO3 (ACTUAL BICARBONATE) 18.1 MEQ/L (23-27); HEMOBLOGIN CONTENT 11.6 G/DL (14-18); METHEMOGLOBIN 0.4 % (0-3); O2 CONTENT 14.9 VOL% (18-24); OPERATOR ID 14335; PCO2 (CO2 TENSION) 25 MMHG (35-45); PO2 (O2 TENSION) 67 MMHG (79-93); SAMPLE Arterial
[2016-11-15 16:00] LABS: A/G RATIO 0.6 (0.7-1.9); ALBUMIN 2.5 G/DL (3.5-5.0); CALCIUM, SERUM 8.4 MG/DL (8.5-10.4); CO2 (CARBON DIOXIDE) 21 MMOL/L (24-34); GLOBULIN 4.1 G/DL (2.5-4.1); POTASSIUM, SERUM 3.5 MMOL/L (3.5-5.3); SGOT(AST) 58 U/L (5-40); SGPT(ALT) 24 U/L (5-65); TOTAL PROTEIN 6.6 G/DL (6.0-8.5)
[2016-11-15 16:01] LABS: ALKALINE PHOSPHATASE 95 U/L (45-117); BUN (BLOOD UREA NITROGEN) 35 MG/DL (6-23); CHLORIDE, SERUM 101 MMOL/L (96-112); CREATININE 1.35 MG/DL (0.70-1.30); GFR AFRICAN AMERICAN 65 ML/MIN (>=60); GFR NON AFRICAN AMERICAN 56 ML/MIN (>=60); GLUCOSE, SERUM 114 MG/DL (60-99); SODIUM, SERUM 133 MMOL/L (135-148); TOTAL BILIRUBIN 2.5 MG/DL (0-1.2)
[2016-11-15 16:13] LABS: ANISOCYTOSIS 1+ (5-10/OIF) (0-5/OIF); PLATELET ESTIMATE DEC (ADEQUATE)
[2016-11-15 16:14] LABS: TEARDROP SHAPED RBCS OCC (0-2/OIF)
[2016-11-15 16:15] LABS: BURR CELLS 1+ (3-10/OIF) (0-2/OIF)
[2016-11-15 16:18] LABS: B NATRIURETIC PEPTIDE (BNP) 182.7 PG/ML (< 100.0)
[~2016-11-15 16:49] MED LIST: ASAB PO; CELEXA40 MG PO; COQ-10200 MG OR; INTERFERON; INTERFERON SC; LOP25 PO; MULTIPLE VIT PO; NITROSTAT0.4 MG SL; RIBASPHERE400 MG PO; RIBASPHERE600 MG PO; ULTRAM50 PO; VITAMIN B-121000 MC1 SL; VITAMIN E 400 UNIT
[2016-11-15 17:41] LABS: WBC (NOT ORDERED) (RFLEX) 0 (0-5)
[2016-11-15 17:49] LABS: ASCORBIC ACID (UR NOT ORDER) NEG (NEG); BILIRUBIN, URINE NEGATIVE (NEG); ER URINALYSIS TAT 0 Hrs 09 Mins; KETONE, URINE NEGATIVE (NEG); LEUKOCYTE ESTERASE(NOT OR NEG (NEG); NITRITE (URINE) NEG (NEG)
[2016-11-15 18:02] LABS: LACTATE 2.2 MMOL/L (0.3-2.4)
[2016-11-15] MEDS ORDERED: FOLIC PO (18:06)
[2016-11-15] MEDS ORDERED: *UNABLE1 (18:07)
[2016-11-15] MEDS ORDERED: B1100 PO (18:07)
[2016-11-15] MEDS ORDERED: BUSPAR10 PO (18:07)
[2016-11-15] MEDS ORDERED: ZOL50 PO (18:08)
[2016-11-15] MEDS ORDERED: PROAIR HFA INH (18:09)
[2016-11-15] MEDS ORDERED: COREG6 PO (18:09)
[2016-11-15] MEDS ORDERED: SPIRO50 PO (18:09)
[2016-11-15] MEDS ORDERED: L40 PO (18:09)
[2016-11-16 00:32] LABS: FREE T4 1.17 NG/DL (0.76-1.46); PHOSPHORUS, SERUM 2.5 MG/DL (2.5-4.5); TROPONIN I 0.36 NG/ML (<0.05); ULTRASENSITIVE TSH 2.55 MCIU/ML (0.358-3.740)
[2016-11-16 04:39] LABS: ALBUMIN 2.2 G/DL (3.5-5.0); ALKALINE PHOSPHATASE 88 U/L (45-117); BUN (BLOOD UREA NITROGEN) 38 MG/DL (6-23); CALCIUM, SERUM 8.4 MG/DL (8.5-10.4); CHLORIDE, SERUM 103 MMOL/L (96-112); CO2 (CARBON DIOXIDE) 19 MMOL/L (24-34); CREATININE 1.24 MG/DL (0.70-1.30); GFR AFRICAN AMERICAN 72 ML/MIN (>=60); GFR NON AFRICAN AMERICAN 62 ML/MIN (>=60); PHOSPHORUS, SERUM 2.3 MG/DL (2.5-4.5); POTASSIUM, SERUM 3.5 MMOL/L (3.5-5.3); SGOT(AST) 78 U/L (5-40); SGPT(ALT) 30 U/L (5-65); SODIUM, SERUM 135 MMOL/L (135-148); TOTAL PROTEIN 6.3 G/DL (6.0-8.5)
[2016-11-16 04:43] LABS: DIRECT BILIRUBIN 0.8 MG/DL (0.0-0.4); GLUCOSE, SERUM 146 MG/DL (60-99); INDIRECT BILIRUBIN(NOT ORDER) 1.2 MG/DL (0.1-0.9); TROPONIN I 0.34 NG/ML (<0.05)
[2016-11-16 05:06] LABS: BASOPHILS 0.1 %; BASOPHILS ABSOLUTE 0.01 10/3/uL (0.0-0.16); EOSINOPHILS 0.1 %; EOSINOPHILS ABSOLUTE 0.01 10/3/uL (0.0-0.53); HEMATOCRIT 29.8 % (40.0-51.0); HEMOGLOBIN 10.4 g/dL (13.6-17.8); IMMATURE GRANULOCYTES 0.6 %; IMMATURE GRANULOCYTES ABSOLUTE 0.07 10/3/uL (0.0-0.11); LYMPHOCYTES 6.7 %; LYMPHOCYTES ABSOLUTE 0.75 10/3/uL (0.67-4.30); MEAN CORPUS HGB CONC 34.9 g/dL (32.0-36.0); MEAN CORPUSCULAR HEMOGLOB 31.1 pg (26.0-34.0); MEAN CORPUSCULAR VOLUME 89.2 fL (80-100); MEAN PLATELET VOLUME 11.1 fL (9.2-13.0); NEUTROPHILS 83.5 %; NEUTROPHILS ABSOLUTE 9.31 10/3/uL (2.02-8.40); PLATELET COUNT 66 10/3/uL (150-400); RBC DISTRIBUTION WIDTH 16.6 % (12.0-16.0); RED CELL COUNT 3.34 10/6/uL (4.7-6.1); WHITE BLOOD CELLS 11.2 10/3/uL (4.5-10.5)
[2016-11-16 05:08] LABS: MANUAL DIFF NO %
[2016-11-16 05:11] LABS: INTERNATIONAL NORMAL RATI 1.6 UNITS (-)
[2016-11-16 05:12] LABS: PARTIAL THROMBO TIME 33.1 SEC (22.5-37.2); PROTIME (NOT ORD) 18.7 SEC (12.0-14.5)
[2016-11-16 05:28] LABS: PLATELET ESTIMATE DEC (ADEQUATE); RBC MORPHOLOGY NORM (NORMAL)
[2016-11-16 08:43] LABS: CK-MB 15.8 NG/ML; CKMB INDEX (NOT ORD) 2.6; TROPONIN I 0.3 NG/ML (<0.05)
[2016-11-16 10:33] LABS: HEMATOCRIT 28.1 % (40.0-51.0); HEMOGLOBIN 9.8 g/dL (13.6-17.8)
[2016-11-16 19:28] LABS: HEMOGLOBIN 8.7 g/dL (13.6-17.8)
[2016-11-16 19:29] LABS: HEMATOCRIT 25.2 % (40.0-51.0)
[2016-11-16 19:43] LABS: CKMB INDEX (NOT ORD) 3.4
[2016-11-16 19:44] LABS: TROPONIN I 0.2 NG/ML (<0.05)
[2016-11-17 00:07] LABS: CKMB INDEX (NOT ORD) 3.6; TROPONIN I 0.17 NG/ML (<0.05)
[2016-11-17 05:36] LABS: HEMOGLOBIN 7.9 g/dL (13.6-17.8)
[2016-11-17 05:38] LABS: HEMATOCRIT 22.2 % (40.0-51.0)
[2016-11-17 09:40] LABS: BUN (BLOOD UREA NITROGEN) 43 MG/DL (6-23); CALCIUM, SERUM 7.9 MG/DL (8.5-10.4); CHLORIDE, SERUM 102 MMOL/L (96-112); CO2 (CARBON DIOXIDE) 23 MMOL/L (24-34); CREATININE 1.06 MG/DL (0.70-1.30); GFR AFRICAN AMERICAN 87 ML/MIN (>=60); GFR NON AFRICAN AMERICAN 75 ML/MIN (>=60); GLUCOSE, SERUM 123 MG/DL (60-99); POTASSIUM, SERUM 3.7 MMOL/L (3.5-5.3); SODIUM, SERUM 134 MMOL/L (135-148)
[2016-11-17] MEDS ORDERED: HABIT21 TOP (11:13)
[2016-11-18] LABS: HEMATOCRIT 24.4 % (40.0-51.0); HEMOGLOBIN 8.8 g/dL (13.6-17.8)
[2016-11-18 03:49] LABS: HEMOGLOBIN 7.7 g/dL (13.6-17.8); MEAN CORPUS HGB CONC 36.2 g/dL (32.0-36.0); MEAN CORPUSCULAR HEMOGLOB 31.8 pg (26.0-34.0); RBC DISTRIBUTION WIDTH 16.4 % (12.0-16.0); WHITE BLOOD CELLS 9.7 10/3/uL (4.5-10.5)
[2016-11-18 03:52] LABS: HEMATOCRIT 21.3 % (40.0-51.0); MANUAL DIFF YES %; PLATELET COUNT 12 10/3/uL (150-400); RED CELL COUNT 2.42 10/6/uL (4.7-6.1)
[2016-11-18 03:57] LABS: INTERNATIONAL NORMAL RATI 1.5 UNITS (-)
[2016-11-18 04:05] LABS: ALBUMIN 2.1 G/DL (3.5-5.0); ALKALINE PHOSPHATASE 85 U/L (45-117); BUN (BLOOD UREA NITROGEN) 42 MG/DL (6-23); CALCIUM, SERUM 7.6 MG/DL (8.5-10.4); CHLORIDE, SERUM 102 MMOL/L (96-112); CO2 (CARBON DIOXIDE) 26 MMOL/L (24-34); CREATININE 1.03 MG/DL (0.70-1.30); DIRECT BILIRUBIN 0.6 MG/DL (0.0-0.4); GFR AFRICAN AMERICAN 90 ML/MIN (>=60); GFR NON AFRICAN AMERICAN 78 ML/MIN (>=60); GLUCOSE, SERUM 106 MG/DL (60-99); INDIRECT BILIRUBIN(NOT ORDER) 1.4 MG/DL (0.1-0.9); POTASSIUM, SERUM 3.4 MMOL/L (3.5-5.3); SGOT(AST) 55 U/L (5-40); SGPT(ALT) 31 U/L (5-65); SODIUM, SERUM 138 MMOL/L (135-148); TOTAL PROTEIN 5.6 G/DL (6.0-8.5)
[2016-11-18 04:48] LABS: BAND NEUTROPHILS 5 %; IMMATURE GRANS ABSOLUTE (CALC) 0.87 10/3/uL (0.0-0.11); LYMPHOCYTES 7 %; LYMPHOCYTES ABSOLUTE (CALC) 0.68 10/3/uL (0.67-4.30); METAMYELOCYTES 8 %; MONOCYTES 2 %; MONOCYTES ABSOLUTE (CALC) 0.19 10/3/uL (0.21-1.20); MYELOCYTES 1 %; NEUTROPHILS ABSOLUTE (CALC) 7.95 10/3/uL (2.02-8.40); NUCLEATED RED BLOOD CELLS 3 /100WBC (0); SEGMENTED NEUTROPHIL (0) 77 %; TOTAL NUCLEATED CELLS 100
[2016-11-18 04:49] LABS: PATH REVIEW YES; SPHEROCYTES FEW (3-10/OIF)
[2016-11-18 14:34] LABS: HEMATOCRIT 24.8 % (40.0-51.0); HEMOGLOBIN 8.9 g/dL (13.6-17.8); MEAN CORPUS HGB CONC 35.9 g/dL (32.0-36.0); MEAN CORPUSCULAR HEMOGLOB 31.6 pg (26.0-34.0); MEAN CORPUSCULAR VOLUME 87.9 fL (80-100); MEAN PLATELET VOLUME 10.8 fL (9.2-13.0); RBC DISTRIBUTION WIDTH 16.5 % (12.0-16.0); RED CELL COUNT 2.82 10/6/uL (4.7-6.1); WHITE BLOOD CELLS 14.6 10/3/uL (4.5-10.5)
[2016-11-18 14:35] LABS: MANUAL DIFF YES %; PLATELET COUNT 81 10/3/uL (150-400)
[2016-11-18 14:46] LABS: CHLORIDE, SERUM 104 MMOL/L (96-112); CO2 (CARBON DIOXIDE) 23 MMOL/L (24-34); CREATININE 0.99 MG/DL (0.70-1.30); GFR AFRICAN AMERICAN 95 ML/MIN (>=60); GFR NON AFRICAN AMERICAN 82 ML/MIN (>=60); SODIUM, SERUM 137 MMOL/L (135-148)
[2016-11-18 14:47] LABS: BUN (BLOOD UREA NITROGEN) 34 MG/DL (6-23); CALCIUM, SERUM 6.9 MG/DL (8.5-10.4); GLUCOSE, SERUM 151 MG/DL (60-99); POTASSIUM, SERUM 2.9 MMOL/L (3.5-5.3)
[2016-11-18 14:57] LABS: BAND NEUTROPHILS 4 %; IMMATURE GRANS ABSOLUTE (CALC) 0.29 10/3/uL (0.0-0.11); LYMPHOCYTES 8 %; LYMPHOCYTES ABSOLUTE (CALC) 1.17 10/3/uL (0.67-4.30); METAMYELOCYTES 2 %; MONOCYTES 4 %; MONOCYTES ABSOLUTE (CALC) 0.58 10/3/uL (0.21-1.20); NEUTROPHILS ABSOLUTE (CALC) 12.56 10/3/uL (2.02-8.40); PLATELET ESTIMATE DEC (ADEQUATE); SEGMENTED NEUTROPHIL (0) 82 %; TOTAL NUCLEATED CELLS 100
[2016-11-18 14:59] LABS: HYPOCHROMIA 1+ (3-10/OIF) (0-2/OIF); OVALOCYTES 1+ (3-10/OIF) (0-2/OIF)
[2016-11-18 15:33] LABS: BUN (BLOOD UREA NITROGEN) 34 MG/DL (6-23); CHLORIDE, SERUM 102 MMOL/L (96-112); CO2 (CARBON DIOXIDE) 22 MMOL/L (24-34); CREATININE 1.06 MG/DL (0.70-1.30); GFR AFRICAN AMERICAN 87 ML/MIN (>=60); GFR NON AFRICAN AMERICAN 75 ML/MIN (>=60); GLUCOSE, SERUM 177 MG/DL (60-99); POTASSIUM, SERUM 3.1 MMOL/L (3.5-5.3); SODIUM, SERUM 136 MMOL/L (135-148)
[2016-11-18 15:35] LABS: CALCIUM, SERUM 6.9 MG/DL (8.5-10.4)
[2016-11-18 22:30] LABS: HEMATOCRIT 25.8 % (40.0-51.0); HEMOGLOBIN 9.1 g/dL (13.6-17.8)
[2016-11-18 22:38] LABS: HIT PTT 37.2 SEC (22.5-37.2)
[2016-11-19 06:23] LABS: HEMATOCRIT 25.4 % (40.0-51.0); MANUAL DIFF YES %; MEAN CORPUS HGB CONC 35.4 g/dL (32.0-36.0); MEAN CORPUSCULAR VOLUME 87.6 fL (80-100); MEAN PLATELET VOLUME 11.1 fL (9.2-13.0); PLATELET COUNT 89 10/3/uL (150-400); WHITE BLOOD CELLS 20.5 10/3/uL (4.5-10.5)
[2016-11-19 06:40] LABS: A/G RATIO 0.5 (0.7-1.9); ALBUMIN 1.9 G/DL (3.5-5.0); ALKALINE PHOSPHATASE 96 U/L (45-117); CALCIUM, SERUM 7.2 MG/DL (8.5-10.4); CHLORIDE, SERUM 99 MMOL/L (96-112); CO2 (CARBON DIOXIDE) 25 MMOL/L (24-34); CREATININE 0.94 MG/DL (0.70-1.30); GFR AFRICAN AMERICAN 101 ML/MIN (>=60); GFR NON AFRICAN AMERICAN 87 ML/MIN (>=60); GLOBULIN 3.5 G/DL (2.5-4.1); POTASSIUM, SERUM 3.1 MMOL/L (3.5-5.3); SGOT(AST) 48 U/L (5-40); SGPT(ALT) 27 U/L (5-65); SODIUM, SERUM 133 MMOL/L (135-148); TOTAL BILIRUBIN 2.1 MG/DL (0-1.2); TOTAL PROTEIN 5.4 G/DL (6.0-8.5)
[2016-11-19 06:41] LABS: BUN (BLOOD UREA NITROGEN) 29 MG/DL (6-23); GLUCOSE, SERUM 110 MG/DL (60-99)
[2016-11-19 06:42] LABS: ANISOCYTOSIS 1+ (5-10/OIF) (0-5/OIF); BAND NEUTROPHILS 5 %; BASOPHILS 1 %; BASOPHILS ABSOLUTE (CALC) 0.21 10/3/uL (0.0-0.16); EOSINOPHILS 3 %; EOSINOPHILS ABSOLUTE (CALC) 0.62 10/3/uL (0.0-0.53); IMMATURE GRANS ABSOLUTE (CALC) 0.41 10/3/uL (0.0-0.11); LYMPHOCYTES 5 %; LYMPHOCYTES ABSOLUTE (CALC) 1.03 10/3/uL (0.67-4.30); METAMYELOCYTES 2 %; MONOCYTES 1 %; MONOCYTES ABSOLUTE (CALC) 0.21 10/3/uL (0.21-1.20); NEUTROPHILS ABSOLUTE (CALC) 18.04 10/3/uL (2.02-8.40); PLATELET ESTIMATE DEC (ADEQUATE); SEGMENTED NEUTROPHIL (0) 83 %; TOTAL NUCLEATED CELLS 100
[2016-11-19 06:43] LABS: POLYCHROMASIA 1+ (2-5/OIF) (0-1/OIF); TOXIC GRANULATION 2+
[2016-11-19 14:17] LABS: HEPARIN-INDUCED PLATELET AB NEGATIVE (NEGATIVE); HIT PATIENT O.D. 0.099 OD (0.000-0.299)
[2016-11-19 16:19] LABS: HEMATOCRIT 25.6 % (40.0-51.0); HEMOGLOBIN 9.1 g/dL (13.6-17.8)
[2016-11-20 04:30] LABS: HEMATOCRIT 26.1 % (40.0-51.0); MEAN CORPUS HGB CONC 34.5 g/dL (32.0-36.0); MEAN CORPUSCULAR HEMOGLOB 31.4 pg (26.0-34.0); MEAN PLATELET VOLUME 10.3 fL (9.2-13.0); PLATELET COUNT 110 10/3/uL (150-400); RED CELL COUNT 2.87 10/6/uL (4.7-6.1); WHITE BLOOD CELLS 24.5 10/3/uL (4.5-10.5)
[2016-11-20 04:31] LABS: MANUAL DIFF YES %; MEAN CORPUSCULAR VOLUME 90.9 fL (80-100)
[2016-11-20 04:38] LABS: INTERNATIONAL NORMAL RATI 1.8 UNITS (-); PARTIAL THROMBO TIME 34.3 SEC (22.5-37.2)
[2016-11-20 04:42] LABS: PROTIME (NOT ORD) 21.1 SEC (12.0-14.5)
[2016-11-20 04:46] LABS: A/G RATIO 0.5 (0.7-1.9); ALBUMIN 1.8 G/DL (3.5-5.0); ALKALINE PHOSPHATASE 100 U/L (45-117); CHLORIDE, SERUM 103 MMOL/L (96-112); CO2 (CARBON DIOXIDE) 24 MMOL/L (24-34); CREATININE 0.93 MG/DL (0.70-1.30); GFR AFRICAN AMERICAN 102 ML/MIN (>=60); GFR NON AFRICAN AMERICAN 88 ML/MIN (>=60); GLOBULIN 3.6 G/DL (2.5-4.1); GLUCOSE, SERUM 108 MG/DL (60-99); POTASSIUM, SERUM 3.3 MMOL/L (3.5-5.3); SGOT(AST) 43 U/L (5-40); SGPT(ALT) 24 U/L (5-65); SODIUM, SERUM 138 MMOL/L (135-148); TOTAL BILIRUBIN 1.9 MG/DL (0-1.2); TOTAL PROTEIN 5.4 G/DL (6.0-8.5)
[2016-11-20 04:48] LABS: BUN (BLOOD UREA NITROGEN) 19 MG/DL (6-23)
[2016-11-20 04:55] LABS: INDIRECT BILIRUBIN(NOT ORDER) 0.9 MG/DL (0.1-0.9)
[2016-11-20 05:58] LABS: ANISOCYTOSIS 1+ (5-10/OIF) (0-5/OIF); BAND NEUTROPHILS 6 %; EOSINOPHILS 4 %; EOSINOPHILS ABSOLUTE (CALC) 0.98 10/3/uL (0.0-0.53); HELMET CELLS OCC (0-2/OIF); IMMATURE GRANS ABSOLUTE (CALC) 1.72 10/3/uL (0.0-0.11); LYMPHOCYTES 8 %; LYMPHOCYTES ABSOLUTE (CALC) 1.96 10/3/uL (0.67-4.30); METAMYELOCYTES 5 %; MONOCYTES 4 %; MONOCYTES ABSOLUTE (CALC) 0.98 10/3/uL (0.21-1.20); MYELOCYTES 2 %; NEUTROPHILS ABSOLUTE (CALC) 18.87 10/3/uL (2.02-8.40); PLATELET ESTIMATE SLT DEC (ADEQUATE); POLYCHROMASIA 1+ (2-5/OIF) (0-1/OIF); SEGMENTED NEUTROPHIL (0) 71 %; TEARDROP SHAPED RBCS OCC (0-2/OIF); TOTAL NUCLEATED CELLS 100; TOXIC GRANULATION 1+; VACUOLATED NEUTROPHILES OCC
[2016-11-20 05:59] LABS: ELLIPTOCYTES 1+ (3-10/OIF) (0-2/OIF); MACROCYTES 1+ (5-10/OIF) (0-5/OIF); MICROCYTES 1+ (5-10/OIF) (0-5/OIF)
[2016-11-21 04:30] LABS: HEMATOCRIT 24.6 % (40.0-51.0); HEMOGLOBIN 8.2 g/dL (13.6-17.8); MEAN CORPUS HGB CONC 33.3 g/dL (32.0-36.0); MEAN CORPUSCULAR HEMOGLOB 30.8 pg (26.0-34.0); MEAN CORPUSCULAR VOLUME 92.5 fL (80-100); MEAN PLATELET VOLUME 9.8 fL (9.2-13.0); PLATELET COUNT 104 10/3/uL (150-400); RBC DISTRIBUTION WIDTH 17.8 % (12.0-16.0); RED CELL COUNT 2.66 10/6/uL (4.7-6.1); WHITE BLOOD CELLS 20.9 10/3/uL (4.5-10.5)
[2016-11-21 04:43] LABS: MANUAL DIFF YES %
[2016-11-21 04:47] LABS: A/G RATIO 0.4 (0.7-1.9); ALBUMIN 1.7 G/DL (3.5-5.0); ALKALINE PHOSPHATASE 105 U/L (45-117); BUN (BLOOD UREA NITROGEN) 17 MG/DL (6-23); CHLORIDE, SERUM 105 MMOL/L (96-112); CO2 (CARBON DIOXIDE) 24 MMOL/L (24-34); CREATININE 0.92 MG/DL (0.70-1.30); GFR AFRICAN AMERICAN 104 ML/MIN (>=60); GFR NON AFRICAN AMERICAN 89 ML/MIN (>=60); GLOBULIN 3.9 G/DL (2.5-4.1); GLUCOSE, SERUM 99 MG/DL (60-99); SGOT(AST) 39 U/L (5-40); SGPT(ALT) 24 U/L (5-65); SODIUM, SERUM 137 MMOL/L (135-148); TOTAL PROTEIN 5.6 G/DL (6.0-8.5)
[2016-11-21 04:48] LABS: TOTAL BILIRUBIN 1.2 MG/DL (0-1.2)
[2016-11-21 06:19] LABS: TOTAL NUCLEATED CELLS 100
[2016-11-21 06:20] LABS: ANISOCYTOSIS 1+ (5-10/OIF) (0-5/OIF); BAND NEUTROPHILS 12 %; EOSINOPHILS 2 %; EOSINOPHILS ABSOLUTE (CALC) 0.42 10/3/uL (0.0-0.53); IMMATURE GRANS ABSOLUTE (CALC) 1.05 10/3/uL (0.0-0.11); LYMPHOCYTES 5 %; LYMPHOCYTES ABSOLUTE (CALC) 1.05 10/3/uL (0.67-4.30); METAMYELOCYTES 3 %; MONOCYTES 9 %; MONOCYTES ABSOLUTE (CALC) 1.88 10/3/uL (0.21-1.20); MYELOCYTES 3 %; NEUTROPHILS ABSOLUTE (CALC) 16.51 10/3/uL (2.02-8.40); PLATELET ESTIMATE SLT DEC (ADEQUATE); SEGMENTED NEUTROPHIL (0) 66 %; TOXIC GRANULATION 1+; VACUOLATED NEUTROPHILES OCC
[2016-11-21 06:21] LABS: POLYCHROMASIA 1+ (2-5/OIF) (0-1/OIF)
[2016-11-21 06:27] LABS: HELMET CELLS OCC (0-2/OIF)
[2016-11-21 06:28] LABS: MACROCYTES 1+ (5-10/OIF) (0-5/OIF); TEARDROP SHAPED RBCS OCC (0-2/OIF)
[2016-11-22 04:06] LABS: A/G RATIO 0.4 (0.7-1.9); ALBUMIN 1.6 G/DL (3.5-5.0); BUN (BLOOD UREA NITROGEN) 15 MG/DL (6-23); CALCIUM, SERUM 7.1 MG/DL (8.5-10.4); CHLORIDE, SERUM 99 MMOL/L (96-112); CO2 (CARBON DIOXIDE) 25 MMOL/L (24-34); CREATININE 0.89 MG/DL (0.70-1.30); GFR AFRICAN AMERICAN 107 ML/MIN (>=60); GFR NON AFRICAN AMERICAN 92 ML/MIN (>=60); GLOBULIN 4.5 G/DL (2.5-4.1); GLUCOSE, SERUM 96 MG/DL (60-99); POTASSIUM, SERUM 3.8 MMOL/L (3.5-5.3); SGOT(AST) 46 U/L (5-40); SGPT(ALT) 25 U/L (5-65); SODIUM, SERUM 133 MMOL/L (135-148); TOTAL PROTEIN 6.1 G/DL (6.0-8.5)
[2016-11-22 04:08] LABS: ALKALINE PHOSPHATASE 140 U/L (45-117)
[2016-11-22 04:16] LABS: HEMATOCRIT 26.3 % (40.0-51.0); MEAN CORPUS HGB CONC 34.2 g/dL (32.0-36.0); MEAN CORPUSCULAR HEMOGLOB 31.4 pg (26.0-34.0); MEAN CORPUSCULAR VOLUME 91.6 fL (80-100); MEAN PLATELET VOLUME 9.6 fL (9.2-13.0); PLATELET COUNT 128 10/3/uL (150-400); RBC DISTRIBUTION WIDTH 17.6 % (12.0-16.0); RED CELL COUNT 2.87 10/6/uL (4.7-6.1); WHITE BLOOD CELLS 18.9 10/3/uL (4.5-10.5)
[2016-11-22 04:20] LABS: MANUAL DIFF YES %
[2016-11-22 07:23] LABS: BAND NEUTROPHILS 4 %; EOSINOPHILS 1 %; EOSINOPHILS ABSOLUTE (CALC) 0.19 10/3/uL (0.0-0.53); LYMPHOCYTES 3 %; LYMPHOCYTES ABSOLUTE (CALC) 0.57 10/3/uL (0.67-4.30); MONOCYTES 2 %; MONOCYTES ABSOLUTE (CALC) 0.38 10/3/uL (0.21-1.20); NEUTROPHILS ABSOLUTE (CALC) 17.77 10/3/uL (2.02-8.40); SEGMENTED NEUTROPHIL (0) 90 %; TOTAL NUCLEATED CELLS 100
[2016-11-22 07:25] LABS: PLATELET ESTIMATE SLT DEC (ADEQUATE)
[2016-11-22 07:26] LABS: ANISOCYTOSIS 1+ (5-10/OIF) (0-5/OIF); POLYCHROMASIA 1+ (2-5/OIF) (0-1/OIF); TOXIC GRANULATION 1+
[2016-11-23 04:25] LABS: BASOPHILS 0.1 %; BASOPHILS ABSOLUTE 0.02 10/3/uL (0.0-0.16); EOSINOPHILS 0.6 %; HEMATOCRIT 25.4 % (40.0-51.0); HEMOGLOBIN 8.8 g/dL (13.6-17.8); IMMATURE GRANULOCYTES 1.4 %; IMMATURE GRANULOCYTES ABSOLUTE 0.23 10/3/uL (0.0-0.11); LYMPHOCYTES 8.9 %; LYMPHOCYTES ABSOLUTE 1.45 10/3/uL (0.67-4.30); MEAN CORPUS HGB CONC 34.6 g/dL (32.0-36.0); MEAN CORPUSCULAR HEMOGLOB 31.4 pg (26.0-34.0); MEAN CORPUSCULAR VOLUME 90.7 fL (80-100); MEAN PLATELET VOLUME 9.7 fL (9.2-13.0); MONOCYTES 8.7 %; MONOCYTES ABSOLUTE 1.42 10/3/uL (0.21-1.20); NEUTROPHILS 80.3 %; NEUTROPHILS ABSOLUTE 13.06 10/3/uL (2.02-8.40); PLATELET COUNT 137 10/3/uL (150-400); RBC DISTRIBUTION WIDTH 17.2 % (12.0-16.0); WHITE BLOOD CELLS 16.3 10/3/uL (4.5-10.5)
[2016-11-23 04:27] LABS: MANUAL DIFF NO %
[2016-11-23 04:40] LABS: A/G RATIO 0.4 (0.7-1.9); ALBUMIN 1.6 G/DL (3.5-5.0); BUN (BLOOD UREA NITROGEN) 13 MG/DL (6-23); CALCIUM, SERUM 7.1 MG/DL (8.5-10.4); CHLORIDE, SERUM 99 MMOL/L (96-112); CO2 (CARBON DIOXIDE) 25 MMOL/L (24-34); CREATININE 0.88 MG/DL (0.70-1.30); GFR AFRICAN AMERICAN 107 ML/MIN (>=60); GFR NON AFRICAN AMERICAN 93 ML/MIN (>=60); GLOBULIN 4.5 G/DL (2.5-4.1); GLUCOSE, SERUM 77 MG/DL (60-99); POTASSIUM, SERUM 3.8 MMOL/L (3.5-5.3); SGOT(AST) 47 U/L (5-40); SGPT(ALT) 24 U/L (5-65); SODIUM, SERUM 132 MMOL/L (135-148); TOTAL PROTEIN 6.1 G/DL (6.0-8.5)
[2016-11-23 04:41] LABS: ALKALINE PHOSPHATASE 103 U/L (45-117); TOTAL BILIRUBIN 1.6 MG/DL (0-1.2)
[2016-11-23 05:26] LABS: INTERNATIONAL NORMAL RATI 1.7 UNITS (-); PROTIME (NOT ORD) 19.4 SEC (12.0-14.5)
[2016-11-23 07:30] LABS: PROCALCITONIN 0.89 ng/mL (<0.5)
[2016-11-24 06:27] LABS: BASOPHILS 0.1 %; BASOPHILS ABSOLUTE 0.01 10/3/uL (0.0-0.16); EOSINOPHILS 0.7 %; HEMOGLOBIN 8.5 g/dL (13.6-17.8); IMMATURE GRANULOCYTES 1.1 %; IMMATURE GRANULOCYTES ABSOLUTE 0.16 10/3/uL (0.0-0.11); LYMPHOCYTES 8.3 %; MEAN CORPUSCULAR HEMOGLOB 30.9 pg (26.0-34.0); MEAN CORPUSCULAR VOLUME 90.9 fL (80-100); MEAN PLATELET VOLUME 9.7 fL (9.2-13.0); MONOCYTES 10.4 %; NEUTROPHILS 79.4 %; NEUTROPHILS ABSOLUTE 11.49 10/3/uL (2.02-8.40); PLATELET COUNT 157 10/3/uL (150-400); RBC DISTRIBUTION WIDTH 17.2 % (12.0-16.0); RED CELL COUNT 2.75 10/6/uL (4.7-6.1); WHITE BLOOD CELLS 14.5 10/3/uL (4.5-10.5)
[2016-11-24 06:28] LABS: INTERNATIONAL NORMAL RATI 1.8 UNITS (-); PROTIME (NOT ORD) 20.3 SEC (12.0-14.5)
[2016-11-24 06:35] LABS: MANUAL DIFF NO %
[2016-11-24 06:37] LABS: ALBUMIN 1.7 G/DL (3.5-5.0); BUN (BLOOD UREA NITROGEN) 12 MG/DL (6-23); CALCIUM, SERUM 7.5 MG/DL (8.5-10.4); CHLORIDE, SERUM 100 MMOL/L (96-112); CO2 (CARBON DIOXIDE) 23 MMOL/L (24-34); CREATININE 0.91 MG/DL (0.70-1.30); GFR AFRICAN AMERICAN 105 ML/MIN (>=60); GFR NON AFRICAN AMERICAN 91 ML/MIN (>=60); GLUCOSE, SERUM 93 MG/DL (60-99); PHOSPHORUS, SERUM 2.5 MG/DL (2.5-4.5); POTASSIUM, SERUM 3.8 MMOL/L (3.5-5.3); SODIUM, SERUM 133 MMOL/L (135-148)
[2016-11-24] MEDS ORDERED: MULTIVITAMI1 PO (12:55)
[2016-11-24] MEDS ORDERED: CONSTULOSE PO (12:57)
[2016-11-24] MEDS ORDERED: PROTONIX PO (12:57)
[2016-11-24] MEDS ORDERED: XIFAXAN550 MG PO (12:57)
[2016-11-24] MEDS ORDERED: ULTRAM50 PO (12:58)
== END 2016-11-24 14:52 | disposition home or self-care (01) | DRG 432 ==
LOC: ER 16:49 → 4SO 19:50 → 5NO 11-16 03:25
PROVIDERS: Emergency Medicine; Hospitalist; Internal Medicine; Internal Medicine Gastroenterology; Internal Medicine Interventional Cardiology; Nurse Practitioner Family; Student in an Organized Health Care Education/Training Program
PROC: 02HV33Z Insertion of Infusion Device into Superior Vena Cava, Percutaneous Approach (ICD-10-PCS; 2016-11-17)
PROC: 4A02X4A Measurement of Cardiac Electrical Activity, Guidance, External Approach (ICD-10-PCS; 2016-11-17)
PROC: 30233N1 Transfusion of Nonautologous Red Blood Cells into Peripheral Vein, Percutaneous Approach (ICD-10-PCS; 2016-11-18)
PROC: 0DBK8ZX Excision of Ascending Colon, Via Natural or Artificial Opening Endoscopic, Diagnostic (ICD-10-PCS; principal; 2016-11-20 07:00)
PROC: 0DJ08ZZ Inspection of Upper Intestinal Tract, Via Natural or Artificial Opening Endoscopic (ICD-10-PCS; 2016-11-20 07:00)
DX: K70.40 Alcoholic hepatic failure without coma (principal); A41.1 Sepsis due to other specified staphylococcus; K70.30 Alcoholic cirrhosis of liver without ascites; G95.19 Other vascular myelopathies; N17.9 Acute kidney failure, unspecified; K63.3 Ulcer of intestine; I85.10 Secondary esophageal varices without bleeding; D62 Acute posthemorrhagic anemia; K76.6 Portal hypertension; M48.54XA Collapsed vertebra, not elsewhere classified, thoracic region, initial encounter for fracture; D69.6 Thrombocytopenia, unspecified; I25.10 Atherosclerotic heart disease of native coronary artery without angina pectoris; Z95.1 Presence of aortocoronary bypass graft; F10.10 Alcohol abuse, uncomplicated; B18.2 Chronic viral hepatitis C; Z23 Encounter for immunization; E78.5 Hyperlipidemia, unspecified; I10 Essential (primary) hypertension; Z66 Do not resuscitate; Z87.891 Personal history of nicotine dependence; K64.1 Second degree hemorrhoids; K64.4 Residual hemorrhoidal skin tags; K57.30 Diverticulosis of large intestine without perforation or abscess without bleeding
CPT/HCPCS: 36415; 36569; 36600; 70450; 71010; 71250; 72072; 72146; 72148; 74176; 80048; 80053; 80069; 80076; 81001; 82140; 82248; 82330; 82550; 82553; 82805; 83605; 83615; 83735; 83880; 84100; 84145; 84439; 84443; 84484; 85014; 85018; 85025; 85384; 85610; 85730; 86022; 86850; 86900; 86901; 86920; 87040; 87077; 87150; 87186; 88305; 90686; 93005; 94640; 96374; 97161-GP; 97530-GP; 99285; A9270-GY; C1751; C8929; C9113; G0008; G8978-CK-GP; G8979-CJ-GP; J0583; J0690; J0692; J1885; J1940; J2250; J2930; J3010; J3370; P9016; P9035; Q9957